=== PATIENT | female | born 1980 | race Hispanic/Latino ===

== ENCOUNTER 2018-08-14 23:41 | Emergency (ER) | payer BC ==
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
[2018-08-15] MEDS ORDERED: DEXAMETHASONE 10 MG/ML VIAL ONE (00:33)
== END 2018-08-15 00:31 | disposition home or self-care (01) ==
LOC: ER 23:41
DX: J02.9 Acute pharyngitis, unspecified (principal); H92.02 Otalgia, left ear; F41.9 Anxiety disorder, unspecified; F17.210 Nicotine dependence, cigarettes, uncomplicated; Z88.0 Allergy status to penicillin
CPT/HCPCS: 87070; 87081; 96372; 99283; J1100